=== PATIENT | female | born 1975 | race Caucasian/White ===

== ENCOUNTER 2016-10-24 17:39 | Emergency (ER) | payer OTHER ==
[~2016-10-24] VITALS: Ht 157.5 cm; Wt 93.5 kg
[~2016-10-24 17:39] MED LIST: BACTRIM,SEPT1 TABLET PO; BROVANA15 MCG/2 M IH; BUDESONIDE0.5 MG/2 M IH; CLARITIN,ALAVAR10 MG PO; FIBER500 MG PO; FISH OIL300 MG PO; FLONASE ALLERG9.9 ML BOTH NARES; FLONASE16 G1 BOTH NARES; KLONOPIN0.5 M1 PO; LITHIUM CARBON300 M1 PO; LITHIUM CARBON600 MG PO; MOTRIN600 MG PO; PEPCID AC10 MG PO; PROVENTIL,2.5 MG/3 M IH; QVAR 80 MCG IN7.3 GM IH; SEROQUEL100 MG PO; SEROQUEL12.5 MG PO; SEROQUEL50 MG PO; TYLENOL EXTRA500 MG PO; VENTOLIN HFA18 GM IH; ZITHROMAX Z-PA250 MG PO
[2016-10-24 19:10] LABS: BASOPHIL COUNT 0.1 K/uL (0-0.1); EOSINOPHIL COUNT 0.2 K/uL (0-0.3); IMMATURE GRANULOCYTE (%) 0.3 % (0.0-0.7); IMMATURE GRANULOCYTE COUNT 0.6 K/uL; LYMPHOCYTE COUNT 3.8 K/uL (1.0-2.8); MCH 30.7 PG (29.0-34.0); MCHC 34.5 G/DL (30.0-36.0); MEAN PLAT.VOLUME 9.5 uM^3 (9.5-12.4); MONOCYTE (%) 5.1 % (3-12); NEUTROPHIL (%) 73.7 % (45-76); NEUTROPHIL COUNT 14.1 K/uL (1.8-6.4); PLATELET COUNT 356 K/uL (156-360); RBC DIS.WIDTH-SD 41.8 % (39-53); RED BLOOD COUNT 4.72 M/uL (3.80-5.20)
[2016-10-24 19:21] LABS: WHITE BLOOD COUNT 19.2 K/uL (4.1-10.2)
[2016-10-24] MEDS ORDERED: OMEGA-3100 MG PO (19:31)
[2016-10-24] MEDS ORDERED: QUETIAPINE FUMA25 MG PO (19:33)
[2016-10-24] MEDS ORDERED: LOXAPINE10 MG PO (19:34)
[2016-10-24] MEDS ORDERED: LITHIUM CARBON300 MG PO (19:36)
[2016-10-24] MEDS ORDERED: CLONAZEPAM1 MG PO (19:37)
[2016-10-24] MEDS ORDERED: CLONIDINE HCL0.1 MG PO (19:38)
[2016-10-24] MEDS ORDERED: CLONAZEPAM0.5 MG PO (19:41)
[2016-10-24 19:44] LABS: CHLORIDE 108 mEq/L (99-109); POTASSIUM 3.9 mEq/L (3.7-5.4); QUANTITATIVE HCG < 4.0 MIU/ML; SODIUM 139 mEq/L (136-147)
[2016-10-24 19:46] LABS: GLUCOSE 117 mg/dL (70-99)
[2016-10-24 19:47] LABS: ANION GAP 9 MEQ/L (2-14)
[2016-10-24 19:48] LABS: TOTAL BILIRUBIN 0.7 mg/dL (0.0-1.0)
[2016-10-24 19:49] LABS: ALKALINE PHOSPHATASE 120 IU/L (3-129)
[2016-10-24 19:50] LABS: GFR ESTIMATE (CALCULATED) > 59 mL/min/
[2016-10-24 19:51] LABS: UREA NITROGEN (BUN) 6 mg/dL (9-23)
[2016-10-24 20:26] VITALS: BP 136/100
== END 2016-10-24 20:28 | disposition home or self-care (01) ==
LOC: EME 17:39
PROVIDERS: Emergency Medicine
DX: F41.9 Anxiety disorder, unspecified (principal); T43.591A Poisoning by other antipsychotics and neuroleptics, accidental (unintentional), initial encounter; F31.9 Bipolar disorder, unspecified; J45.909 Unspecified asthma, uncomplicated; F17.200 Nicotine dependence, unspecified, uncomplicated
CPT/HCPCS: 80053; 80178; 84702; 85025; 99281; 99284; J7030

== ENCOUNTER → 2016-12-09 | Outpatient (CLI) | payer MEDICARE, OTHER ==
[~2016-12-09] MED LIST changes: +CLONAZEPAM0.5 MG PO; +CLONAZEPAM1 MG PO; +CLONIDINE HCL0.1 MG PO; +LITHIUM CARBON300 MG PO; +LOXAPINE10 MG PO; +OMEGA-3100 MG PO; +QUETIAPINE FUMA25 MG PO
== END | disposition home or self-care (01) ==
LOC: CDC 12:04
DX: Z01.810 Encounter for preprocedural cardiovascular examination (principal); M25.561 Pain in right knee; M23.41 Loose body in knee, right knee; M17.11 Unilateral primary osteoarthritis, right knee
CPT/HCPCS: 93000

== ENCOUNTER 2017-03-31 14:22 | Inpatient (IN) | payer OTHER ==
[~2017-03-31] VITALS: Ht 157.5 cm; Wt 87.1 kg
[2017-03-31 16:52] LABS: HEMATOCRIT 45.2 % (36.0-46.0); MCH 30.2 PG (29.0-34.0); MCHC 34.5 G/DL (30.0-36.0); MCV 87.6 FL (83-99); MEAN PLAT.VOLUME 9.6 uM^3 (9.5-12.4); PLATELET COUNT 364 K/uL (156-360); RBC DIS.WIDTH-CV 11.9 % (11.8-14.6); RBC DIS.WIDTH-SD 38.1 % (39-53); RED BLOOD COUNT 5.16 M/uL (3.80-5.20); WHITE BLOOD COUNT 10.9 K/uL (4.1-10.2)
[2017-03-31 17:00] LABS: CHLORIDE 110 mEq/L (99-109); SODIUM 143 mEq/L (136-147)
[2017-03-31 17:02] LABS: GLUCOSE 133 mg/dL (70-99)
[2017-03-31 17:03] LABS: ANION GAP 12 MEQ/L (2-14)
[2017-03-31 17:05] LABS: SERUM ETHYL ALCOHOL < 10 mg/dL
[2017-03-31 17:06] LABS: GFR ESTIMATE (CALCULATED) > 59 mL/min/
[2017-03-31 17:08] LABS: UREA NITROGEN (BUN) 5 mg/dL (9-23)
[2017-03-31 17:09] LABS: SALICYLATE < 5.0 MG/DL (15-30)
[2017-03-31 17:21] LABS: AMPHETAMINE NEGATIVE (500 ng/mL); BARBITURATES NEGATIVE (200 ng/mL); BENZODIAZEPINES NEGATIVE (150 ng/mL); COCAINE NEGATIVE (150 ng/mL); INTERNAL CONTROLS VALID? YES; METHADONE NEGATIVE (200 ng/mL); METHAMPHETAMINE NEGATIVE (500 ng/mL); OPIATES (MORPHINE) NEGATIVE (100 ng/mL); OXYCODONE NEGATIVE (100 ng/mL); PHENCYCLIDINE NEGATIVE (25 ng/mL); PROPOXYPHENE NEGATIVE (300 ng/mL); THC CANNABINOIDS NEGATIVE (50 ng/mL); TRICYCLIC ANTIDEPRESSANTS NEGATIVE (300 ng/mL)
[2017-03-31 17:59] VITALS: BP 127/82
[2017-03-31] MEDS ORDERED: KLONOPIN1 MG PO (19:22)
[2017-03-31] MEDS ORDERED: COGENTIN0.5 MG PO (19:29)
[2017-03-31] MEDS ORDERED: CATAPRES0.1 MG PO (19:31)
[2017-03-31] MEDS ORDERED: ATORVASTATIN CA10 MG PO (19:33)
[2017-03-31] MEDS ORDERED: LOXAPINE10 MG PO (19:37)
[2017-04-01 07:50] VITALS: BP 119/69
[2017-04-01 15:40] VITALS: BP 139/62
[2017-04-02 07:06] VITALS: BP 115/64
[2017-04-02 15:39] VITALS: BP 115/61
[2017-04-03 07:24] VITALS: BP 137/84
[2017-04-03 15:37] VITALS: BP 125/69
[2017-04-04 07:30] VITALS: BP 116/58
[2017-04-04] MEDS ORDERED: QUETIAPINE FUMA50 MG PO (09:16)
[2017-04-04] MEDS ORDERED: CLONAZEPAM0.5 MG PO (09:16)
[2017-04-04] MEDS ORDERED: VENLAFAXINE HCL75 M3 PO (09:16)
== END 2017-04-04 10:59 | disposition home or self-care (01) | DRG 881 ==
LOC: EME 14:22 → EDOF 16:39 → 1WEST 16:39
PROVIDERS: Emergency Medicine
DX: F34.1 Dysthymic disorder (principal); F41.0 Panic disorder [episodic paroxysmal anxiety]; F41.1 Generalized anxiety disorder; F31.9 Bipolar disorder, unspecified; K21.9 Gastro-esophageal reflux disease without esophagitis; J45.909 Unspecified asthma, uncomplicated; F17.200 Nicotine dependence, unspecified, uncomplicated; Z91.5 Personal history of self-harm
CPT/HCPCS: 80048; 85027; 90839; 97150 GO; 97165 GO; 99281; 99284; G0480

== ENCOUNTER 2017-04-06 14:58 | Inpatient (IN) | payer OTHER ==
[~2017-04-06] VITALS: Ht 157.5 cm; Wt 85.6 kg
[~2017-04-06 14:58] MED LIST changes: +ATORVASTATIN CA10 MG PO; +CATAPRES0.1 MG PO; +COGENTIN0.5 MG PO; +KLONOPIN1 MG PO; +QUETIAPINE FUMA50 MG PO; +VENLAFAXINE HCL75 M3 PO
[2017-04-06 16:11] LABS: EOSINOPHIL (%) 0.6 % (0-5); EOSINOPHIL COUNT 0.1 K/uL (0-0.3); HEMATOCRIT 46.6 % (36.0-46.0); IMMATURE GRANULOCYTE (%) 0.2 % (0.0-0.7); INSTRUMENT ABS NEUTROPHIL CT 4.4 K/uL; MCH 30.2 PG (29.0-34.0); MCHC 34.3 G/DL (30.0-36.0); MCV 87.9 FL (83-99); MEAN PLAT.VOLUME 9.6 uM^3 (9.5-12.4); MONOCYTE (%) 7.1 % (3-12); MONOCYTE COUNT 0.6 K/uL (0-0.8); NEUTROPHIL (%) 54.3 % (45-76); NEUTROPHIL COUNT 4.4 K/uL (1.8-6.4); PLATELET COUNT 345 K/uL (156-360); RBC DIS.WIDTH-CV 11.9 % (11.8-14.6); RBC DIS.WIDTH-SD 38.4 % (39-53); WHITE BLOOD COUNT 8.1 K/uL (4.1-10.2)
[2017-04-06 16:25] LABS: CHLORIDE 109 mEq/L (99-109); POTASSIUM 3.7 mEq/L (3.7-5.4); SODIUM 141 mEq/L (136-147)
[2017-04-06 16:26] LABS: GLUCOSE 123 mg/dL (70-99)
[2017-04-06 16:28] LABS: ANION GAP 13 MEQ/L (2-14)
[2017-04-06 16:30] LABS: GFR ESTIMATE (CALCULATED) > 59 mL/min/; SERUM ETHYL ALCOHOL < 10 mg/dL
[2017-04-06 16:31] LABS: UREA NITROGEN (BUN) 5 mg/dL (9-23)
[2017-04-06 17:44] LABS: ADD MIUA? YES; BILIRUBIN NEGATIVE; BLOOD MODERATE; COLOR YELLOW ((YELLOW)); GLUCOSE (STRIP) NEGATIVE; KETONES NEGATIVE; LEUKOCYTES NEGATIVE; NITRITE NEGATIVE; PROTEIN (STRIP) NEGATIVE; UROBILINOGEN 0.2 MG/DL (0.2-1.0)
[2017-04-06 17:49] VITALS: BP 144/87
[2017-04-06 17:51] LABS: BACTERIA RARE /HPF; EPITHELIAL CELLS 1+ /HPF; MUCUS 3+ /LPF; WHITE BLOOD CELLS 0-5 /HPF (0-5)
[2017-04-06 17:59] VITALS: BP 144/87
[2017-04-06 18:01] LABS: AMPHETAMINE NEGATIVE (500 ng/mL); BARBITURATES NEGATIVE (200 ng/mL); BENZODIAZEPINES NEGATIVE (150 ng/mL); COCAINE NEGATIVE (150 ng/mL); INTERNAL CONTROLS VALID? YES; METHADONE NEGATIVE (200 ng/mL); METHAMPHETAMINE NEGATIVE (500 ng/mL); OPIATES (MORPHINE) NEGATIVE (100 ng/mL); OXYCODONE NEGATIVE (100 ng/mL); PHENCYCLIDINE NEGATIVE (25 ng/mL); PROPOXYPHENE NEGATIVE (300 ng/mL); THC CANNABINOIDS NEGATIVE (50 ng/mL); TRICYCLIC ANTIDEPRESSANTS NEGATIVE (300 ng/mL)
[2017-04-06] MEDS ORDERED: MOTRIN400 MG PO (19:32)
[2017-04-07 07:42] VITALS: BP 119/66
[2017-04-07 15:35] VITALS: BP 145/74
[2017-04-08 07:56] VITALS: BP 116/70
[2017-04-08 15:43] VITALS: BP 133/79
[2017-04-09 07:36] VITALS: BP 143/72
[2017-04-09 10:47] VITALS: BP 135/77
[2017-04-09 15:51] VITALS: BP 132/89
[2017-04-10 07:55] VITALS: BP 120/71
[2017-04-10 16:13] VITALS: BP 115/63
[2017-04-11 08:13] VITALS: BP 114/68
[2017-04-11] MEDS ORDERED: PROPRANOLOL HCL20 MG PO (09:18)
[2017-04-11] MEDS ORDERED: SEROQUEL100 MG PO (09:18)
[2017-04-11] MEDS ORDERED: VENLAFAXINE HC150 M1 PO (09:18)
[2017-04-11] MEDS ORDERED: CLONAZEPAM1 MG PO (09:18)
[2017-04-11] MEDS ORDERED: KLONOPIN0.5 M1 PO (09:20)
== END 2017-04-11 10:34 | disposition home or self-care (01) | DRG 880 ==
LOC: EME 14:58 → EDOF 16:41 → 1WEST 16:41
PROVIDERS: Emergency Medicine
DX: F41.1 Generalized anxiety disorder (principal); R45.851 Suicidal ideations; F40.01 Agoraphobia with panic disorder; F34.1 Dysthymic disorder; F17.200 Nicotine dependence, unspecified, uncomplicated; F40.10 Social phobia, unspecified; J45.909 Unspecified asthma, uncomplicated; Z79.899 Other long term (current) drug therapy; R00.0 Tachycardia, unspecified
CPT/HCPCS: 80048; 81003; 85025; 90839; 97150 GO; 97165 GO; 99281; 99284; G0480